=== PATIENT | female | born 1965 | race Caucasian/White ===

== ENCOUNTER 2019-11-01 08:00 | Outpatient (CLI) | payer OTHER | END 2019-11-01 23:59 | disposition home or self-care (01) | LOC: LAB.R 08:00 | PROVIDERS: ATTEND Nurse Practitioner Gerontology | DX: K21.9 Gastro-esophageal reflux disease without esophagitis (principal) | CPT/HCPCS: 83013 ==

== ENCOUNTER 2019-11-01 15:42 | Outpatient (CLI) | payer OTHER ==
--- NOTE | 2019-11-02 15:10 | XRAY Report ---
Reason: KNNE PAIN Procedure Date: 11/01/2019 Accession Number: [id number] / [id number] Procedure: XRN - Knee 2 View LT CPT Code: Final Report FULL RESULT: EXAM: LEFT KNEE RADIOGRAPHY EXAM DATE: 11/01/2019 04:06 PM. CLINICAL HISTORY: Chronic left knee pain, popping sensation started 2 months ago. COMPARISON: None. TECHNIQUE: 2 views. FINDINGS: Bones: No fracture or bone destructive process. Joints: No subluxation. Joint spaces are preserved. No joint effusion. Soft Tissues: Quadriceps enthesophyte at the anterior superior patellar margin. IMPRESSION: 1. Quadriceps enthesophyte. 2. Otherwise unremarkable 2 view left knee. RADIA
== END 2019-11-01 15:43 | disposition home or self-care (01) ==
LOC: DI.N 15:42
PROVIDERS: ATTEND Nurse Practitioner Gerontology
DX: M25.562 Pain in left knee (principal); G89.29 Other chronic pain

== ENCOUNTER 2019-11-03 08:40 | Outpatient (CLI) | payer OTHER ==
--- NOTE | 2019-11-09 11:36 | Mammography Report ---
Reason: ROUTINE MAMMO Procedure Date: 11/03/2019 Accession Number: [id number] / [id number] Procedure: DEVENDRA - Screening Mammo w/Tobin CPT Code: Final Report FULL RESULT: EXAM: Screening Mammo w/Tobin DATE: 11/03/2019 9:15 AM CLINICAL HISTORY: Screening encounter. History of benign right breast biopsy, core type with clip placement. TECHNIQUE: (B) - Bilateral CC and MLO views were obtained. COMPARISON: None PARENCHYMAL PATTERN: (D) - The breast(s) demonstrate(s) heterogeneously dense fibroglandular parenchyma. FINDINGS: A biopsy clip is noted in the right breast, consistent with history, typically benign. There are no suspicious masses, calcifications, or areas of distortion. IMPRESSION: Benign findings. BI-RADS category 2. RECOMMENDATION: (ANNUAL) - Recommend routine annual screening mammography. BI-RADS CATEGORY: (2) - Benign Findings. STANDARD QUALIFYING STATEMENTS: 1. This examination was not reviewed with the aid of Computer-Aided Detection (CAD). 2. A negative or benign imaging report should not preclude biopsy if clinically suspicious findings are present. 3. Dense breasts may obscure an underlying neoplasm. 4. This examination was reviewed with the aid of 3D breast imaging (tomosynthesis).
== END 2019-11-03 08:41 | disposition home or self-care (01) ==
LOC: DI 08:40
PROVIDERS: ATTEND Nurse Practitioner Gerontology
DX: Z12.31 Encounter for screening mammogram for malignant neoplasm of breast (principal)
CPT/HCPCS: 77063; 77067

== ENCOUNTER 2020-11-07 07:00 | Outpatient (CLI) | payer OTHER ==
[2020-11-07 12:07] LABS: BASOPHILS % (AUTO) 1.1 %; EOSINOPHILS # (AUTO) 0.1 10^3/uL (0.0-0.7); EOSINOPHILS % (AUTO) 2.5 %; HCT - HEMATOCRIT 45.8 % (37.0-47.0); HGB - HEMOGLOBIN 15.4 g/dL (12.0-16.0); LYMPHOCYTES # (AUTO) 1.3 10^3/uL (1.5-3.5); LYMPHOCYTES % (AUTO) 36.4 %; MEAN CORPUSCULAR HEMOGLOBIN 30.3 pg (27.0-31.0); MEAN CORPUSCULAR HGB CONC 33.6 g/dL (32.0-36.0); MEAN CORPUSCULAR VOLUME 90.2 fL (81.0-99.0); MEAN PLATELET VOLUME 10.2 fL (7.9-10.8); MONOCYTES # (AUTO) 0.5 10^3/uL (0.0-1.0); MONOCYTES % (AUTO) 14.6 %; NEUTROPHILS # (AUTO) 1.6 10^3/uL (1.5-6.6); NEUTROPHILS % (AUTO) 45.4 %; PLT - PLATELET COUNT 291 10^3/uL (130-450); RED BLOOD COUNT 5.08 10^6/uL (4.20-5.40); RED CELL DISTRIBUTION WIDTH 13.6 % (12.0-15.0); WHITE BLOOD COUNT 3.6 x10^3/uL (4.8-10.8)
[2020-11-07 12:54] LABS: THYROID STIMULATING HORMONE 2.7 uIU/mL (0.34-5.60)
[2020-11-07 14:23] LABS: ALBUMIN 4.4 g/dL (3.2-5.5); ALBUMIN/GLOBULIN RATIO 1.2 (1.0-2.2); ALKALINE PHOSPHATASE 80 IU/L (42-121); ALT ALANINE AMINOTRANSFERASE 15 IU/L (10-60); AST ASPARTATE AMINOTRANSFERASE 20 IU/L (10-42); BILIRUBIN,TOTAL 1.3 mg/dL (0.2-1.0); BUN - BLOOD UREA NITROGEN 16 mg/dL (6-20); CALCIUM 9.8 mg/dL (8.5-10.3); CARBON DIOXIDE - CO2 27 mmol/L (21-32); CHLORIDE 105 mmol/L (101-111); CHOL/HDL RATIO 3.9 (<4.4); CHOLESTEROL 239 mg/dL; CREATININE 0.8 mg/dL (0.4-1.0); GFR - MDRD 74 (>89); GLUCOSE 93 mg/dL (70-100); HDL CHOLESTEROL 61 mg/dL; LDL CHOLESTEROL,CALCULATED 161 mg/dL; LDL/HDL RATIO 2.6 (<4.4); SODIUM 140 mmol/L (135-145); TOTAL PROTEIN 8.1 g/dL (6.7-8.2); TRIGLYCERIDES 84 mg/dL; VLDL CHOLESTEROL 17 mg/dL
== END 2020-11-07 23:59 | disposition home or self-care (01) ==
LOC: LAB.WCP 07:00
PROVIDERS: ATTEND Nurse Practitioner Family
DX: K21.9 Gastro-esophageal reflux disease without esophagitis (principal); Z13.9 Encounter for screening, unspecified; F43.10 Post-traumatic stress disorder, unspecified; L71.9 Rosacea, unspecified
CPT/HCPCS: 36415; 80053; 80061; 83721; 84443; 85025

== ENCOUNTER 2020-11-19 07:00 | Outpatient (CLI) | payer OTHER ==
--- NOTE | 2020-11-19 18:07 | XRAY Report ---
PROCEDURE: Hip w/Pelvis 1V LT INDICATIONS: TROCHANTERIC BURSITIS TECHNIQUE: AP pelvis with lateral view(s) of the left hip(s). COMPARISON: None. FINDINGS: Bones: No fractures or dislocations. Pelvic ring appears intact. No suspicious bony lesions. Soft tissues: The visualized bowel gas pattern is within normal limits. No suspicious soft tissue c alcifications. IMPRESSION: No acute osseous abnormality. Reviewed by: Trip Salinas MD on 11/19/2020 5:05 PM GIULIA Approved by: Trip Salinas MD on 11/19/2020 5:05 PM GIULIA Station ID: [id number]
== END 2020-11-19 23:59 | disposition home or self-care (01) ==
LOC: DI.N 07:00
PROVIDERS: ATTEND Physician Assistant Medical
DX: M70.60 Trochanteric bursitis, unspecified hip (principal)

== ENCOUNTER 2021-07-31 07:50 | Outpatient (CLI) | payer OTHER ==
[2021-07-31 12:25] LABS: HCT - HEMATOCRIT 40.6 % (37.0-47.0); HGB - HEMOGLOBIN 13.3 g/dL (12.0-16.0); MEAN CORPUSCULAR HEMOGLOBIN 29.3 pg (27.0-31.0); MEAN CORPUSCULAR HGB CONC 32.8 g/dL (32.0-36.0); MEAN CORPUSCULAR VOLUME 89.4 fL (81.0-99.0); MEAN PLATELET VOLUME 10.5 fL (7.9-10.8); RED BLOOD COUNT 4.54 10^6/uL (4.20-5.40); RED CELL DISTRIBUTION WIDTH 14.5 % (12.0-15.0); WHITE BLOOD COUNT 4.3 x10^3/uL (4.8-10.8)
[2021-07-31 12:36] LABS: ESTIMATED AVERAGE GLUCOSE 128 mg/dL (70-100); HEMOGLOBIN A1c% 6.1 % (4.27-6.07)
[2021-07-31 12:49] LABS: URIC ACID 5.9 mg/dL (2.6-7.2)
[2021-07-31 12:50] LABS: CRP - C-REACTIVE PROTEIN < 1.0 mg/dL (0-1.0)
[2021-07-31 13:03] LABS: RHEUMATOID FACTOR NEGATIVE (Negative)
[2021-08-02 13:01] LABS: DNA (DS) ANTIBODY 5 IU/mL
[2021-08-02 18:27] LABS: CYCLIC CITRULL PEPTIDE CCP IGG 21 UNITS
[2021-08-02 18:35] LABS: ANA SCREEN NEGATIVE (NEGATIVE)
== END 2021-07-31 07:51 | disposition home or self-care (01) ==
LOC: LAB.N 07:50
PROVIDERS: ATTEND Nurse Practitioner
DX: R63.1 Polydipsia (principal); M25.50 Pain in unspecified joint
CPT/HCPCS: 36415; 83036; 84550; 85027; 85651; 86038; 86140; 86200; 86225; 86430

== ENCOUNTER 2021-09-11 09:50 | Day surgery (SDC) | payer OTHER ==
[2021-09-11] MEDS ORDERED: LACTATED RINGERS 1,000 ML IV ONE (09:55)
[2021-09-11] MEDS ORDERED: CEFAZOLIN SODIUM IN 0.9 % NACL 2 GM/100 ML BAG IV ONE (09:58)
[2021-09-11] MEDS ORDERED: BUPIVACAINE 0.5% PF 10 ML VIAL IM ONE ×2 (10:37)
[2021-09-11] MEDS ORDERED: LIDOCAINE 2%-EPI 1:100000 20 ML MDV SUBQ ONE ×2 (10:37)
[2021-09-11] MEDS ORDERED: LIDOCAINE-MPF 2% 5 ML VIAL ONE (10:41)
[2021-09-11] MEDS ORDERED: MIDAZOLAM 2 MG/2 ML VIAL ONE (10:41)
[2021-09-11] MEDS ORDERED: ONDANSETRON 4 MG/2 ML VIAL ONE (10:41)
[2021-09-11] MEDS ORDERED: fentaNYL 100 MCG/2 ML VIAL ONE ×2 (10:41→12:38)
[2021-09-11] MEDS ORDERED: PROPOFOL 200 MG/20 ML VIAL IVP ONE (10:41)
[2021-09-11] MEDS ORDERED: ROCURONIUM 50 MG/5 ML VIAL ONE (10:41)
[2021-09-11] MEDS ORDERED: ePHEDrine 50 MG/ML VIAL IVP PRN (10:47)
[2021-09-11] MEDS ORDERED: ONDANSETRON 4 MG/2 ML VIAL IVP PRN ×2 (10:47→12:32)
[2021-09-11] MEDS ORDERED: NALOXONE 0.4 MG/ML VIAL IVP PRN (10:47)
[2021-09-11] MEDS ORDERED: METOCLOPRAMIDE 10 MG/2 ML VIAL IVP PRN (10:47)
[2021-09-11] MEDS ORDERED: ATROPINE ABBOJECT 1 MG/10 ML SYRINGE IVP PRN (10:47)
[2021-09-11] MEDS ORDERED: HYDROmorphone 0.5 MG/0.5 ML SYRINGE IVP PRN ×2 (10:47→12:32)
[2021-09-11] MEDS ORDERED: MORPHINE 2 MG/ML CARPUJECT IVP PRN (10:47)
[2021-09-11] MEDS ORDERED: fentaNYL 100 MCG/2 ML VIAL IVP PRN (10:47)
--- NOTE | 2021-09-11 10:47 | ANESTHESIA ---
Pre-Anesthesia VS, & Labs - Diagnosis ventral hernia - Procedure open ventral hernia repair Vital Signs: Temp Pulse Resp BP Pulse Ox 36.3 C L 71 16 132/83 H 96 09/11/21 10:08 09/11/21 10:08 09/11/21 10:08 09/11/21 10:08 09/11/21 10:08 Height: 5 ft 4 in Weight (kg): 100.4 kg Body Mass Index: 38.0 BMI Classification: Obese - NPO >8 hours - Is Patient ?: No Home Medications and Allergies Home Medications: Ambulatory Orders Omeprazole 20 mg PO DAILY 09/10/21 SUMAtriptan [Imitrex] 25 mg PO PRN PRN 09/10/21 Omeprazole 20 mg PO DAILY 09/10/21 SUMAtriptan [Imitrex] 25 mg PO PRN PRN 09/10/21 Allergies/Adverse Reactions: Allergies Allergy/AdvReac Type Severity Reaction Status Date / Time NSAIDS (Non-Steroidal Allergy Anaphylaxis Verified 09/10/21 12:39 Anti-Inflamma Anes History & Medical History - Anesthetic History Anesthesia Complications: reports: No previous complications Family history of Anesthesia Complications: Denies Family history of Malignant Hyperthermia: Denies - Medical History Cardiovascular: reports: None Pulmonary: reports: Other Gastrointestinal: reports: GERD, Other Urinary: reports: None Musculoskeletal: reports: None Endocrine/Autoimmune: reports: None Skin: reports: Rosacea - Surgical History General: reports: Gastric surgery, Colonoscopy Gynecologic: reports: section, Tubal ligation Exam General: Alert, Oriented x3, Cooperative Dental: WNL Mouth Opening: Greater than 4 Fingerbreadths Neck Mobility: Normal Mallampati classification: I Thyromental Distance: 4-6 cm Respiratory: Lungs clear Cardiovascular: Regular rate Plan Anesthesia Type: General Consent for Procedure(s) Verified and Reviewed: Yes Code Status: Attempt Resuscitation ASA classification: 2-Mild systemic disease Is this case an emergency?: No
[2021-09-11] MEDS ORDERED: ACETAMINOPHEN 1,000 MG/100 ML 100 ML IV ONE (10:56)
[2021-09-11] MEDS ORDERED: LACTATED RINGERS 1,000 ML IV SCH (11:00)
[2021-09-11] MEDS ORDERED: BUPIVACAINE 0.5% PF 10 ML VIAL ONE ×2 (11:18→11:20)
[2021-09-11] MEDS ORDERED: NEOSTIGMINE 1 MG/1 ML 10 ML MDV ONE (12:04)
[2021-09-11] MEDS ORDERED: GLYCOPYRROLATE 1 MG/5 ML VIAL ONE (12:04)
[2021-09-11] MEDS ORDERED: HYDROcod/ACETAM 5/325 MG TABLET PO PRN (12:32)
--- NOTE | 2021-09-11 12:38 | OPERATIVE REPORT ---
Operative Report - General Procedure Date: 09/11/21 Planned Procedure: open repair incarcerated ventral hernia with mesh Pre-Op Diagnosis: incarcerated ventral hernia Procedure Performed: open repair incarcerated ventral hernia with mesh Post Op Diagnosis: same - Procedure Note Primary Surgeon: chris preciado Anesthesia Technique: General ET tube, Local Pathology: none Estimated Blood Loss (mL): 2 Drain/Tube Type: Other (none) Indications: painful hernia Findings: 3 cm ventral hernia 1 cm cephalad of a 1 cm umbilical hernia Complications: none - Other Other Information/Narrative: The patient was properly identified brought to the operating room and placed in supine position. Sequential compression devices were placed. General anesthesia was induced. The patient was prepped and draped in a sterile fashion and given preoperative antibiotics. Local anesthetic was given throughout the procedure. A supraumbilical incision was made and extended left lateral of the umbilicus. Dissection proceeded sharply. Subcutaneous tissue was mobilized away from the fascial defect by 2 to 3 cm in all directions. Umbilical skin was sharply excised away from the hernia sac or peritoneum. The peritoneum was then carefully released from the fascial defect edge with cutting current cautery. A 3 cm ventral hernia was present 1 cm cephalad of a 1 cm umbilical hernia. The bridge of fascia between the 2 was released. Preperitoneal fat was reduced. A preperitoneal space was developed for mesh placement. A small hole in the peritoneum was closed with running 3 O vicryl. Polypropylene mesh was cut to size approximately 2 x 3 inches and placed preperitoneal. The mesh was secured with 12 interrupted 0 Ethibond sutures. The mesh lay in good position without tension. Fascia was mostly closed over the mesh with additional O ethibond. Subcutaneous tissue was reapproximated with interrupted 2-0 Vicryl suture. Umbilical skin was tacked back down to fascia with interrupted 2-0 Vicryl suture. Buried interrupted subdermal 3-0 Vicryl sutures were then placed. Skin was closed with a running 4-0 Monocryl subcuticular suture. Dressing was appli ed. Patient tolerated the procedure the procedure well was awakened and brought to recovery in good condition.
[2021-09-11] MEDS ORDERED: LACTATED RINGERS 900 ML IV ONE (12:55)
--- NOTE | 2021-09-11 13:04 | ANESTHESIA POST OP EVALUATION ---
Anesthesia Post Eval - Post Anesthesia Eval Vitals: Last Vital Signs Temp 36.1 C L 09/11/21 12:57 Pulse 54 L 09/11/21 12:57 Resp 12 09/11/21 12:57 BP 110/58 L 09/11/21 12:57 Pulse Ox 98 09/11/21 12:57 CV Function Including HR & BP: Stable Pain Control: Satisfactory Nausea & Vomiting: Negative Mental Status: Baseline Respiratory Status: Airway Patent Hydration Status: Satisfactory Anesthesia Complications: None
[2021-09-11 13:49] VITALS: BP 101/65
== END 2021-09-11 09:51 | disposition home or self-care (01) ==
LOC: SDS 09:50
PROVIDERS: ATTEND Surgery
DX: K43.6 Other and unspecified ventral hernia with obstruction, without gangrene (principal); E66.9 Obesity, unspecified; Z68.38 Body mass index [BMI] 38.0-38.9, adult
CPT/HCPCS: 49561; 49568; C1781; J0131; J0690; J7120

== ENCOUNTER 2021-09-19 08:00 | Outpatient (CLI) | payer OTHER | END 2021-09-19 23:59 | LOC: LAB.N 08:00 | PROVIDERS: ATTEND Physician Assistant | DX: U07.1 COVID-19 (principal) ==

== ENCOUNTER 2022-11-13 07:11 | Outpatient (CLI) | payer OTHER ==
[2022-11-13 12:00] LABS: BASOPHILS % (AUTO) 0.9 %; EOSINOPHILS # (AUTO) 0.1 10^3/uL (0.0-0.7); EOSINOPHILS % (AUTO) 2.2 %; HCT - HEMATOCRIT 41.3 % (37.0-47.0); HGB - HEMOGLOBIN 13.8 g/dL (12.0-16.0); LYMPHOCYTES # (AUTO) 1.3 10^3/uL (1.5-3.5); LYMPHOCYTES % (AUTO) 29.2 %; MEAN CORPUSCULAR HEMOGLOBIN 29.6 pg (27.0-31.0); MEAN CORPUSCULAR HGB CONC 33.4 g/dL (32.0-36.0); MEAN CORPUSCULAR VOLUME 88.4 fL (81.0-99.0); MEAN PLATELET VOLUME 10.2 fL (7.9-10.8); MONOCYTES # (AUTO) 0.6 10^3/uL (0.0-1.0); MONOCYTES % (AUTO) 14.2 %; NEUTROPHILS # (AUTO) 2.4 10^3/uL (1.5-6.6); NEUTROPHILS % (AUTO) 53.5 %; PLT - PLATELET COUNT 279 10^3/uL (130-450); RED BLOOD COUNT 4.67 10^6/uL (4.20-5.40); RED CELL DISTRIBUTION WIDTH 14.4 % (12.0-15.0); WHITE BLOOD COUNT 4.5 x10^3/uL (4.8-10.8)
[2022-11-13 12:44] LABS: % IRON SATURATION 14 % (20-50); ALKALINE PHOSPHATASE 109 IU/L (42-121); ALT ALANINE AMINOTRANSFERASE 17 IU/L (10-60); AST ASPARTATE AMINOTRANSFERASE 21 IU/L (10-42); BUN - BLOOD UREA NITROGEN 15 mg/dL (6-20); CALCIUM 9.9 mg/dL (8.5-10.3); CARBON DIOXIDE - CO2 30 mmol/L (21-32); CHLORIDE 105 mmol/L (101-111); CHOL/HDL RATIO 3.6 (<4.4); CHOLESTEROL 253 mg/dL; CREATININE 0.7 mg/dL (0.4-1.0); GFR - MDRD 86 (>89); GLUCOSE 105 mg/dL (70-100); HDL CHOLESTEROL 70 mg/dL; IRON 68 ug/dL (28-170); LDL CHOLESTEROL,CALCULATED 162 mg/dL; LDL/HDL RATIO 2.3 (<4.4); POTASSIUM 4.5 mmol/L (3.5-5.0); SODIUM 142 mmol/L (135-145); TOTAL IRON BINDING CAPACITY 494 ug/dL (250-450); TOTAL PROTEIN 7.9 g/dL (6.7-8.2); TRANSFERRIN 353 mg/dL (192-382); TRIGLYCERIDES 106 mg/dL; VLDL CHOLESTEROL 21 mg/dL
[2022-11-13 12:52] LABS: THYROID STIMULATING HORMONE 2.91 uIU/mL (0.34-5.60)
[2022-11-13 12:58] LABS: FERRITIN 6.1 ng/mL (11.0-306.8)
[2022-11-13 13:26] LABS: ESTIMATED AVERAGE GLUCOSE 131 mg/dL (70-100); HEMOGLOBIN A1c% 6.2 % (4.27-6.07)
== END 2022-11-13 07:12 | disposition home or self-care (01) ==
LOC: LAB.N 07:11
PROVIDERS: ATTEND Nurse Practitioner
DX: E78.5 Hyperlipidemia, unspecified (principal); Z98.84 Bariatric surgery status
CPT/HCPCS: 36415; 80053; 80061; 82607; 82728; 83036; 83540; 83721; 83970; 84443; 84466; 85025

== ENCOUNTER 2023-01-20 15:05 | Outpatient (CLI) | payer OTHER ==
--- NOTE | 2023-01-22 11:22 | Mammography Report ---
BILATERAL DIGITAL SCREENING MAMMOGRAM 3D/2D: 01/20/2023 CLINICAL: Routine screening. Comparison is made to exam dated: 11/03/2019 mammogram - [facility]. There are scattered areas of fibroglandular density in both breasts (category b / 25%-50% glandular t issue). There are grouped heterogeneous calcifications in the left breast at 1 o'clock posterior depth. Thes e are increased in number. No other significant masses, calcifications, or other findings are seen in either breast. IMPRESSION: INCOMPLETE: NEEDS ADDITIONAL IMAGING EVALUATION The grouped heterogeneous calcifications in the left breast are indeterminate. A diagnostic mammogram is recommended. Based on the Tyrer Cuzick model (a risk assessment model) the patients lifetime risk is 9.8% and her 10 year risk is 3.4%. According to the ACR, ACS, and NCCN guidelines, an annual breast MRI exam jae g with mammogram is recommended if the patients lifetime risk is 20% or greater. This exam was interpreted at Station ID: [id number]. NOTE: For mammograms, a report in lay terms will be sent to the patient. Approximately 15% of breast malignancies will not be visualized mammographically. In the management of a palpable breast mass, a negative mammogram must not discourage biopsy of a clinically suspicious lesion. Electronically Signed By: Trip Salinas M.D. slc/:01/21/2023 13:35:29 ACR BI-RADS Category 0: Incomplete 3340F PARENCHYMAL PATTERN: (A) - The breast(s) demonstrate(s) scattered fibroglandular densities. BI-RADS CATEGORY: (0) - 0 RECOMMENDATION: (ADDMAM) - Recommend additional mammographic views. [id number] Immediate follow-up LATERALITY: (B)
== END 2023-01-20 15:06 | disposition home or self-care (01) ==
LOC: DI 15:05
DX: Z12.31 Encounter for screening mammogram for malignant neoplasm of breast (principal); R92.1 Mammographic calcification found on diagnostic imaging of breast

== ENCOUNTER 2023-01-27 08:03 | Outpatient (CLI) | payer OTHER ==
[2023-01-28 07:10] LABS: ESTRADIOL <5.0 pg/mL (.); PROGESTERONE 0.1 ng/mL (.)
[2023-01-28 22:07] LABS: TESTOSTERONE <3 ng/dL (4-50)
== END 2023-01-27 08:04 | disposition home or self-care (01) ==
LOC: LAB.N 08:03
PROVIDERS: ATTEND Physician Assistant
DX: E66.9 Obesity, unspecified (principal)
CPT/HCPCS: 36415; 82533; 82670; 84144; 84402; 84403; 85651; 86140

== ENCOUNTER 2023-02-13 12:13 | Outpatient (CLI) | payer OTHER ==
--- NOTE | 2023-02-16 09:39 | Mammography Report ---
UNILATERAL LEFT DIGITAL DIAGNOSTIC MAMMOGRAM 3D/2D WITH MAGNIFICATION: 02/13/2023 CLINICAL: Patient returns for magnification views of microcalcifications in the left breast. Comparison is made to exams dated: 01/20/2023 mammogram and 11/03/2019 mammogram - [facility]. There are scattered areas of fibroglandular density in the left breast (category b / 25%-50% glandula r tissue). There are 0.5 cm grouped coarse heterogeneous calcifications in the left breast at 1 o'clock posterio r depth. These are increased in number. No other significant masses or calcifications are seen in the breast. IMPRESSION: SUSPICIOUS OF MALIGNANCY The 0.5 cm grouped coarse heterogeneous calcifications in the left breast are at a moderate suspicion for malignancy. A stereotactic biopsy is recommended. Exam findings were discussed with the patient by Dr. Barbosa. Based on the Tyrer Cuzick model (a risk assessment model) the patients lifetime risk is 7.9% and her 10 year risk is 2.7%. According to the ACR, ACS, and NCCN guidelines, an annual breast MRI exam jae g with mammogram is recommended if the patients lifetime risk is 20% or greater. This exam was interpreted at Station ID: [id number]. NOTE: For mammograms, a report in lay terms will be sent to the patient. Approximately 15% of breast malignancies will not be visualized mammographically. In the management of a palpable breast mass, a negative mammogram must not discourage biopsy of a clinically suspicious lesion. Electronically Signed By: Trip Salinas M.D. slc/:02/13/2023 13:26:57 ACR BI-RADS Category 4b: Suspicious abnormality - intermediate suspicion of malignancy 3344F PARENCHYMAL PATTERN: (A) - The breast(s) demonstrate(s) scattered fibroglandular densities. BI-RADS CATEGORY: (4b) - Mod Susp Biopsy [id number] Immediate follow-up LATERALITY: (L)
== END 2023-02-13 12:14 | disposition home or self-care (01) ==
LOC: DI 12:13
PROVIDERS: ATTEND Physician Assistant
DX: R92.0 Mammographic microcalcification found on diagnostic imaging of breast (principal)

== ENCOUNTER 2024-03-11 07:42 | Outpatient (CLI) | payer OTHER ==
[2024-03-11 11:44] LABS: BASOPHILS % (AUTO) 0.5 %; HCT - HEMATOCRIT 43.3 % (37.0-47.0); HGB - HEMOGLOBIN 14.4 g/dL (12.0-16.0); LYMPHOCYTES # (AUTO) 1.1 10^3/uL (1.5-3.5); LYMPHOCYTES % (AUTO) 26.6 %; MEAN CORPUSCULAR HEMOGLOBIN 31.1 pg (27.0-31.0); MEAN CORPUSCULAR HGB CONC 33.3 g/dL (32.0-36.0); MEAN CORPUSCULAR VOLUME 93.5 fL (81.0-99.0); MEAN PLATELET VOLUME 10.4 fL (7.9-10.8); MONOCYTES # (AUTO) 0.6 10^3/uL (0.0-1.0); MONOCYTES % (AUTO) 13.8 %; NEUTROPHILS # (AUTO) 2.4 10^3/uL (1.5-6.6); NEUTROPHILS % (AUTO) 58.8 %; PLT - PLATELET COUNT 261 10^3/uL (130-450); RED BLOOD COUNT 4.63 10^6/uL (4.20-5.40); RED CELL DISTRIBUTION WIDTH 12.7 % (12.0-15.0)
[2024-03-11 12:04] LABS: ALBUMIN 4.2 g/dL (3.2-5.5); ALBUMIN/GLOBULIN RATIO 1.4 (1.0-2.2); BILIRUBIN,TOTAL 0.9 mg/dL (0.2-1.0); CALCIUM 9.8 mg/dL (8.5-10.3); CREATININE 0.8 mg/dL (0.6-1.3); POTASSIUM 4.4 mmol/L (3.5-4.5); TOTAL PROTEIN 7.3 g/dL (6.4-8.9)
== END 2024-03-11 07:43 | disposition home or self-care (01) ==
LOC: LAB.N 07:42
PROVIDERS: ATTEND Nurse Practitioner
DX: R73.03 Prediabetes (principal); Z79.899 Other long term (current) drug therapy
CPT/HCPCS: 36415; 80053; 85025